=== PATIENT | male | born 1950 | race African-American/Black ===

== ENCOUNTER → 2021-04-20 | Outpatient (CLI) | payer OTHER ==
[~2021-04-20] VITALS: Ht 218.4 cm; Wt 94.3 kg
[2021-04-20 08:51] LABS: CREATININE 1.6 mg/dL (0.6-1.3)
[2021-04-20 09:17] VITALS: BP 121/54; BP 127/82
== END ==
LOC: M.LAB 04-13 09:42 → M.CT 09:00 → M.LAB 09:00
PROVIDERS: ATTEND Internal Medicine
DX: Z01.812 Encounter for preprocedural laboratory examination (principal); R07.9 Chest pain, unspecified

== ENCOUNTER 2021-05-22 09:08 | Inpatient (IN) | payer OTHER ==
[~2021-05-22] VITALS: Ht 188 cm; Wt 96.7 kg
[2021-05-22] VITALS (8 sets, daily range): BP systolic 117–148; BP diastolic 73–89
[~2021-05-22 09:08] MED LIST: FLOMAX0.4 MG PO; LABETALOL HCL300 MG PO; LISINOPRIL20 MG PO; NIFEDIPINE ER30 M1 PO; PROSCAR 5MG TABL5 M1 PO
[2021-05-22 09:39] LABS: HEMATOCRIT 36.1 % (42.0-52.0); HEMOGLOBIN 12.7 gm/dL (14.0-18.0); MCH 30.8 pg (26.0-34.0); MCHC 35.2 g/dL (28.0-37.0); MCV 87.4 fL (80.0-100.0); MPV 8.2 fl. (7.2-11.1); RBC 4.13 mil/uL (4.50-6.00); RDW-CV 13.5 % (10.5-14.5); WBC 11.1 thou/uL (4.0-11.0)
[2021-05-22 09:46] LABS: CALCIUM 9.3 mg/dL (8.5-10.1); CREATININE 1.5 mg/dL (0.6-1.3); POTASSIUM 3.6 mmol/L (3.5-5.1)
[2021-05-22 09:47] LABS: PROTIME 10.4 Seconds (9.20-11.50)
--- NOTE | 2021-05-22 10:06 | EKG ---
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 05/22/21 1005 0949 0949 Tyshawn Darling MD, [facility] /EPI
--- NOTE | 2021-05-22 14:43 | CARD ---
[address] [address] CARDIAC CATH REPORT Name: RAJWINDER CROWDER Room: [address] IN [facility]#: [id number] Admission: 05/22/21 Attend Phys: Tyshawn Darling MD Discharge: Date of : 46 Report #: [id number] THIS REPORT FOR: cc: Ha Pena Mohammad K. DO Liston, Michael J. MD [facility] ~ APPROVED REPORT Study performed: 05/22/2021 10:05:29 Patient Status: Out-Patient Room #: Event Personnel: Tyshawn Darling Lye Bath Operator, Sandy Hoyt RN RN, Joseph Lang RTR Scrub, Lynda Foster RTR Monitor Exam: Insertion of Dual Chamber Permanent Pacemaker Indications: Sick Sinus Syndrome/Tachy Miguel Syndrome The patient is a 70 year-old male with a history of Proximal atrial fibrillation sick sinus syndrome. Conscious Sedation Start time: 1040 End Time: 1118 Fentanyl 25 mcg Versed 1 mg Implanted Devices: Medtronic Ashlee S DR DOYLE SureScan Generator, SN: [id number] Medtronic 5076-52 Atrial Lead, SN:[id number] Medtronic 5076-58 Ventricular Lead, SN:[id number] Procedure The patient underwent informed consent. We discussed the details of the procedure including the risks, which include, but not limited to bleeding, infection, vascular damage, cardiac perforation, and pneumothorax. He understood these risks and was willing to proceed. As such, he was brought to the EP/Cardiac Catheterization laboratory in a fasting and sedated state and prepped and draped in a sterile fashion, received IV antibiotics prior to initiation of the procedure and a venogram was performed showing patency of the left axillary vein. The patient underwent conscious sedation, with no related complications. The patient was brought to the EP/Cardiac Catheterization laboratory and the left chest and shoulder were prepped and draped in a sterile manner. During this case, Fluoroscopy and Omnipaque 20 [place] [address] CARDIAC CATH REPORT Name: RAJWINDER CROWDER Room: [address] IN [facility]#: [id number] Admission: 05/22/21 Attend Phys: Tyshawn Darling MD Discharge: Date of : 46 Report #: [id number] imaging. IV conscious sedation was used throughout procedure with appropriate monitoring and was performed in the presence of a registered nurse who was an independent trained observer other than the physician performing the procedure. The left subclavian region was infiltrated with 2% Lidocaine with Epinephrine subcutaneous anesthesia. A transverse incision was made in the left upper chest cavity. The subcutaneous pocket was formed via blunt dissection. Percutaneous venous access was achieved and an introducer sheath was inserted into the left Subclavian vein. Utilizing fluoroscopic guidance, the atrial and ventricular lead wires were advanced over the wires and positioned in the right atria and right ventricle respectively. Capturing and sensing thresholds were verified. Electrode Parameters P Wave: 2.8 mV R Wave: 7.9 mV Atrial Threshold: 0.75 V at 0.40 ms Ventricular Threshold: 0.5 V at 0.40 ms Atrial Resistance: 456 ohms Ventricular Resistance: 665 ohms Dual Chamber The atrial and ventricular leads were then secured using 0 silk sutures. The subcutaneous pocket was irrigated with ancef antibiotic solution.The atrial and ventricular leads were attached to the appropriate receptacles on the pulse generator and set screws firmly tightened to insure adequate contact and stability. The lead and pulse generator were placed into the subcutaneous pocket. Sharp and sponge counts were confirmed to be correct. At this time the pocket was closed subcutaneously with a 2.0 Vicryl and the skin was closed with a 4.0 Vicryl. The operative site was dressed in sterile fashion with Benzoin spray, Steri strips, Telfa, and Tegaderm and the patient was transferred to the floor in stable condition. Complications The patient tolerated the procedure well and there were no complications associated with the procedure. Findings Specimens Removed: No Estimated Blood Loss: 5 [place] [address] CARDIAC CATH REPORT Name: RAJWINDER CROWDER Room: [address] IN M.R.#: [id number] Admission: 05/22/21 Attend Phys: Tyshawn Darling MD Discharge: Date of : 46 Report #: [id number] Conclusion 1. Paroxysmal atrial fibrillation and sick sinus syndrome. 2. Successful placement of a dual-chamber pacemaker with atrial and ventricular lead placement. Recommendations 1. Follow-up site check in 1 week. 2. Follow-up device interrogation in 1 month. <ELECTRONICALLY SIGNED> By: Tyshawn Darling MD, [facility] 05/22/21 1442 144 [id number] Centergiovanni Darling MD, [facility] /INF
--- NOTE | 2021-05-22 17:56 | NUR ---
PT MOVED FROM RM 200 TO 211. ALL BELONGINGS TRANSFERRED TO NEW ROOM. PT ORIENTED TO ROOM. POST PACEMAKER VITALS CHARTED. VS STABLE. NO PAIN. HEART MONITOR ATTACHED AT SR. IV INTACT. LEFT ARM IMMOBILIZER INTACT. ADMIT DONE IN CHART. CALL LIGHT WITH IN REACH. WILL CONTINUE TO MONITOR.
[2021-05-23] VITALS: BP 149/89
[2021-05-23 04:21] VITALS: BP 132/97
--- NOTE | 2021-05-23 05:42 | NUR ---
PT IS ABLE TO COMMUNICATE HIS NEEDS TO STAFF EFFECTIVELY. HE HAS DENIED THE NEED FOR PAIN MEDICATION UP TO THIS TIME. DRESSING TO LT CHEST PACER INSERTION SITE HAS BEEN C/D/I UP TO THIS TIME. IMMOBILIZATION SLING MAINTAINED AND PT INSTRUCTED TO NOT RAISE ARM ABOVE HEAD. LIKELY DISCHARGE TODAY.
[2021-05-23 08:00] VITALS: BP 151/94
--- NOTE | 2021-05-23 09:35 | EKG ---
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
--- NOTE | 2021-05-23 09:36 | EKG ---
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1950 Requested By: Tyshawn Darling Order Number: [id number] Reading MD: Harjinder Landon Measurements Intervals [place] Rate: 85 P: 48 NC: 165 QRS: -48 QRSD: 95 T: 42 QT: 413 QTc: 492 Interpretive Statements Atrial-ventricular dual-paced complexes No further rhythm analysis attempted due to paced rhythm Left anterior fascicular block Compared to ECG 05/23/2021 08:00:37 ventricular paced beats now seen Electronically Signed On 05-23-2021 9:36:07 CDT by Harjinder Landon [email or web address] <ELECTRONICALLY SIGNED> By: Harjinder Landon MD, [facility] 05/23/21 0936 0 08 Harjinder Landon MD, [facility] /EPI
[2021-05-23 12:00] VITALS: BP 143/95
[2021-05-23 16:00] VITALS: BP 135/90
--- NOTE | 2021-05-23 17:01 | NUR ---
pt indicated he lives home with . pt drives and is active. pt endored independence w/adls. pt has no dmes. pt denies hx with home or snf. pt stated he has no d/c needs at this time.
--- NOTE | 2021-05-23 19:13 | NUR ---
RECEIVED REPORT AROUND 0715. ASSUMED CARE. VS AND ASSESSMENT CHARTED. IV ITNACT. HEART MONITOR ATTACHED AT SR. PACED. FAMILY VISITED THIS SHIFT. NO PAIN THIS SHIFT. MEDS GIVEN PER JAN. HOURLY ROUNDING PERFORMED. CALL LIGHT WITH IN REACH.
[2021-05-23 21:14] VITALS: BP 133/94
[2021-05-24] VITALS (7 sets, daily range): BP systolic 127–142; BP diastolic 87–96
[2021-05-24 04:25] LABS: CALCIUM 9.2 mg/dL (8.5-10.1); CREATININE 1.3 mg/dL (0.6-1.3)
--- NOTE | 2021-05-24 05:48 | NUR ---
PT IS ABLE TO COMMUNICATE HIS NEEDS TO STAFF EFFECTIVELY. HE HAS DENIED THE NEED FOR PAIN MEDICATION UP TO THIS TIME. DRESSING TO LT CHEST PACER INSERTION INCISION IS C/D/I UP TO THIS TIME. LT ARM IMMOBILIZER IN PLACE UP TO THIS TIME. POSSIBLE DISCHARGE TODAY.
--- NOTE | 2021-05-24 14:17 | EKG ---
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1950 Requested By: Tyshawn Darling Order Number: [id number] Reading MD: Harjinder Landon Measurements Intervals [place] Rate: 65 P: 27 [place]: 175 QRS: -56 QRSD: 95 T: 55 QT: 449 QTc: 467 Interpretive Statements Sinus rhythm Left anterior fascicular block Compared to ECG 05/23/2021 08:01:20 AV dual-paced complex(es) or rhythm no longer present Electronically Signed On 05-24-2021 14:17:41 CDT by Harjinder Landon [email or web address] <ELECTRONICALLY SIGNED> By: Harjinder Landon MD, [facility] 05/24/21 1417 1301 1301 Harjinder Landon MD, [facility] /EPI
[2021-05-24] MEDS ORDERED: ELIQUIS5 MG PO (15:52)
--- NOTE | 2021-05-24 17:30 | NUR ---
1705: PATIENT DISCHARGE HOME VIA WHEELCHAIR, ACCOMPANIED BY NURSE TECH TO PRIVATE VEHILCE. IV DC'D, SITE COVERED WITH COTTON AND TAPE. PATIENT TOLERATED WITHOUT COMPLICATIONS. PATIENT BELONGINGS GATHER AND SENT WITH PATIENT. DISCHARGE INSTRUCTIONS REVIEWED, PATIENT ACKNOWLEDGE UNDERSTANDING. APPOINTMENT CARDS GIVEN TO PATIENT. NO QUESTIONS OR CONCERNS VOICED.
--- NOTE | 2021-05-25 15:42 | NUR ---
Attempted to make a post hospital follow up phone call, there was no answer, left a msg with a return phone # if he had any questions or concerns.
--- NOTE | 2021-05-25 16:47 | H ---
[place] [address] HISTORY AND PHYSICAL Name: RAJWINDER CROWDER Room: [address] IN M.R.#: [id number] Admission: 05/22/21 Attend Phys: Tyshawn Darling MD Discharge: 05/24/21 Date of : 46 Report #: [id number] THIS REPORT FOR: cc: Ha Pena Mohammad K. DO Liston, Michael J. MD [facility] ~ DOC #: [id number] cc: Ha Pena DO, David R. Blick, MD [facility] Tyshawn Darling MD DATE OF SERVICE: 05/22/2021 CARDIOLOGY ADMISSION HISTORY AND PHYSICAL REFERRING PHYSICIAN: Harjinder Landon MD. INDICATION: Sick sinus syndrome and paroxysmal atrial fibrillation. HISTORY OF PRESENT ILLNESS: The patient is a very pleasant 70-year-old gentleman who is known to have paroxysmal atrial fibrillation. A recent monitor showed episodes of premature atrial contractions, premature ventricular contractions and multiple pauses up to 3. In addition, he has paroxysmal atrial fibrillation. He is being admitted for pacemaker placement and sotalol loading. He does note occasional episodes of lightheadedness without azalea dizziness or syncope. He is not having chest pain. He denies shortness of breath. PAST MEDICAL HISTORY: 1. Paroxysmal atrial fibrillation. 2. Sick sinus syndrome. 3. Essential hypertension. FAMILY HISTORY: Noncontributory. SOCIAL HISTORY: The patient does not smoke. He does not drink alcohol. He lives with his . ALLERGIES: None documented. CURRENT MEDICATIONS: Finasteride 5 mg daily, labetalol 300 mg daily, lisinopril 20 mg daily, nifedipine 30 mg b.i.d., Flomax 0.4 mg daily. REVIEW OF SYSTEMS: A 14-point review of systems positive for palpitations, shortness of breath, joint pain and lightheadedness. Otherwise, unremarkable. PHYSICAL EXAMINATION: [place] [address] HISTORY AND PHYSICAL Name: RAJWINDER CROWDER Room: [address]#: [id number] Admission: 05/22/21 Attend Phys: Tyshawn Darling MD Discharge: 05/24/21 Date of : 46 Report #: [id number] VITAL SIGNS: Stable. Blood pressure 116/82, pulse 78 and regular. GENERAL: This is a pleasant gentleman in no distress. Mood and affect are appropriate. HEENT: Extraocular muscles intact. Mucous membranes are moist. NECK: Shows no jugular venous distention. There are no carotid bruits. CHEST: Reveals clear lung trammell without wheezes or rales. CARDIAC: Reveals a regular rhythm. Normal S1, S2. I do not appreciate gallop or murmur. ABDOMEN: Reveals normal bowel sounds. Abdomen is soft and nontender. EXTREMITIES: Shows no edema. Peripheral pulses are 2+ and palpable. SKIN: Warm and dry. IMPRESSION AND RECOMMENDATIONS: 1. Sick sinus syndrome/paroxysmal atrial fibrillation. The patient will be started on sotalol after pacemaker placed. 2. Permanent pacemaker placement for sick sinus syndrome planned. 3. Essential hypertension, presently stable. 4. Hypercoagulable state due to atrial fibrillation. Plan to start anticoagulant once the pacemaker was placed. MD SHANNA [facility] [place] [place]ELECTRONICALLY SIGNED> By: Tyshawn Darling MD, FACC 05/25/21 1647 1619 [id number] Hospitalnikhil Darling MD, FACC /nt
--- NOTE | 2021-05-25 16:47 | D ---
[address] [address] DISCHARGE SUMMARY Name: RAJWINDER CROWDER Room: [address] IN M.R.#: [id number] Admission: 05/22/21 Attend Phys: Tyshawn Darling MD Discharge: 05/24/21 Date of : 46 Report #: [id number] THIS REPORT FOR: cc: Ha Pena Mohammad K. DO Liston, Michael J. MD [facility] ~ DOC #: [id number] cc: Rene Fontanez MD [facility], DO Tyshawn Jang MD DATE OF DISCHARGE: 05/24/2021 DISCHARGE DIAGNOSES: 1. Paroxysmal atrial fibrillation. 2. Sick sinus syndrome. 3. Essential hypertension. 4. Hypercoagulable state due to paroxysmal atrial fibrillation. PROCEDURES DURING HOSPITALIZATION: 1. Dual chamber pacemaker placement with atrial and ventricular lead placement. 2. Telemetry monitoring. HOSPITAL COURSE: The patient was brought to the hospital on 05/22/2021, at which time he had a dual chamber pacemaker placed without difficulty. The patient tolerated the procedure well without complication. Upon admission at that time, he was started on sotalol 80 mg twice daily. Serial EKG showed normal QTc. The patient remained stable during sotalol loading. He is being discharged uneventfully. The incision site appears well healed. DISCHARGE MEDICATIONS: 1. Finasteride 5 mg daily. 2. Labetalol 300 mg daily. 3. Lisinopril 20 mg daily. 4. Nifedipine 30 mg b.i.d. 5. Flomax 0.4 mg daily. 6. Eliquis 5 mg b.i.d. DISPOSITION: The patient is to follow up in 1 week for site check and 1 month for device interrogation. Tyshawn Darling MD [facility] [address] DISCHARGE SUMMARY Name: RAJWINDER CROWDER Room: [address]#: [id number] Admission: 05/22/21 Attend Phys: Tyshawn Darling MD Discharge: 05/24/21 Date of : 46 Report #: [id number] <ELECTRONICALLY SIGNED> By: Tyshawn Darling MD, [facility] 05/25/21 1647 1458 1708[facility] hospitalgiovanni Darling MD, [facility] /nt
== END 2021-05-24 17:05 | disposition home or self-care (01) | DRG 243 ==
LOC: M.CL 09:08 → M.TBA-CV 09:46 → M.2W 09:46 → M.CL 10:00 → M.2W 11:42
PROVIDERS: ADMIT Internal Medicine Cardiovascular Disease; ATTEND Internal Medicine Cardiovascular Disease
PROC: 0JH606Z Insertion of Pacemaker, Dual Chamber into Chest Subcutaneous Tissue and Fascia, Open Approach (ICD-10-PCS; principal; 2021-05-22)
PROC: B51N1ZZ Fluoroscopy of Left Upper Extremity Veins using Low Osmolar Contrast (ICD-10-PCS; principal; 2021-05-22)
PROC: 02HK3JZ Insertion of Pacemaker Lead into Right Ventricle, Percutaneous Approach (ICD-10-PCS; principal; 2021-05-22)
PROC: 02H63JZ Insertion of Pacemaker Lead into Right Atrium, Percutaneous Approach (ICD-10-PCS; principal; 2021-05-22)
PROC: 4A12X4Z Monitoring of Cardiac Electrical Activity, External Approach (ICD-10-PCS; 2021-05-22)
DX: I48.0 Paroxysmal atrial fibrillation (principal); D68.69 Other thrombophilia; I49.5 Sick sinus syndrome; I12.9 Hypertensive chronic kidney disease with stage 1 through stage 4 chronic kidney disease, or unspecified chronic kidney disease; N18.30 Chronic kidney disease, stage 3 unspecified